=== PATIENT | male | born 1990 | race African-American/Black ===

== ENCOUNTER 2018-08-01 12:46 | Emergency (ER) | payer SELFPAY ==
--- NOTE | 2018-08-01 12:54 | PDOC ---
History of Present Illness - General Chief Complaint: Eye Problem Stated Complaint: IRRITATION LEFT EYE Time Seen by Provider: 08/01/18 12:49 Past History - Past Medical History Allergies/Adverse Reactions: Allergies Allergy/AdvReac Type Severity Reaction Status Date / Time No Known Allergies Allergy Unverified 08/01/18 12:48 Home Medications: Ambulatory Orders NK [No Known Home Medication] 08/01/18 *DC/Admit/Observation/Transfer - Discharge Dispostion Condition at time of disposition: Stable - Referrals - Patient Instructions - Post Discharge Activity
[2018-08-01 12:56] VITALS: BP 145/97; PULSE 79; TEMP 98.4; BMI 29.7
[2018-08-01] MEDS ORDERED: FLUORESCEIN NA 1 EA STRIP OS ONE (13:42)
[2018-08-01] MEDS ORDERED: TETRACAINE 0.5% HCL 0.6ML DROPPER.BOTTLE OS ONE (13:44)
[2018-08-01] MEDS ORDERED: FLUORESCEIN NA 1 EA STRIP ONE (13:46)
[2018-08-01] MEDS ORDERED: TETRACAINE 0.5% OPHTH SOLN 2 ML BOTTLE ONE (13:46)
[2018-08-01] MEDS ORDERED: CIPROFLOXACIN HCL 0.3% OPHTH 2.5ML BOTTLE ONE (13:51)
[2018-08-01] MEDS ORDERED: CIPROFLOXACIN 0.3% EYE DROPS 5 ML BOTTLE OS ONE (13:56)
--- NOTE | 2018-08-01 13:58 | PDOC ---
History of Present Illness - General History Source: Patient Exam Limitations: No Limitations - History of Present Illness Initial Comments: 08/01/18 13:53 Patient is a 28M contact user coming in today with left eye pain that started yesterday. Patient states that he feels like he has a foreign body in his left eye. Also states that he forgets to take out his lenses sometimes. Endorses clear discharge. Has not seen optho recently. Denies fevers, chills, nausea, vomiting. <Delbert Yun - Last Filed: 08/01/18 13:53> <Shelli Gibson - Last Filed: 08/01/18 16:58> - General Chief Complaint: Eye Problem Stated Complaint: IRRITATION LEFT EYE Time Seen by Provider: 08/01/18 12:49 Attending Attestation - Resident Resident Name: Delbert Yun - ED Attending Attestation I have performed the following: I have examined & evaluated the patient, The case was reviewed & discussed with the resident, I agree w/resident's findings & plan, Exceptions are as noted - HPI HPI: 28 y/o male complaining of both eyes irritation, mainly on the left for few days 08/01/18 16:35 - Physicial Exam PE: Hyperemic conjunctivae, negative fluorescein after tetracaine abrasion cornea - Medical Decision Making Patient developed corneal abrasion, , prescription given Instructed not to wear contacts until cleared by Ophtalmologist 08/01/18 16:51 <Shelli Gibson S - Last Filed: 08/01/18 16:58> Past History - Past Medical History COPD: No Other medical history: DENIES - Suicide/Smoking/Psychosocial Hx Smoking History: Never smoked Information on smoking cessation initiated: No Hx Alcohol Use: No Drug/Substance Use Hx: No <Delbert Yun - Last Filed: 08/01/18 13:53> <Shelli Gibson - Last Filed: 08/01/18 16:58> - Past Medical History Allergies/Adverse Reactions: Allergies Allergy/AdvReac Type Severity Reaction Status Date / Time No Known Allergies Allergy Unverified 08/01/18 12:48 Home Medications: Ambulatory Orders NK [No Known Home Medication] 08/01/18 Review of Systems - Review of Systems Comments:: 08/01/18 13:57 GENERAL/CONSTITUTIONAL: No fever or chills. No weakness. HEAD, EYES, EARS, NOSE AND THROAT: No change in vision. No sore throat. CARDIOVASCULAR: No chest pain or shortness of breath RESPIRATORY: No cough, wheezing, or hemoptysis. GASTROINTESTINAL: No nausea, vomiting, diarrhea or constipation. SKIN: No rash NEUROLOGIC: No headache, vertigo, loss of consciousness, or change in strength/ sensation. ALLERGIC/IMMUNOLOGIC: No hives or skin allergy. <Delbert Yun - Last Filed: 08/01/18 13:53> *Physical Exam - Vital Signs Last Vital Signs Temp Pulse Resp BP Pulse Ox 98.4 F 79 16 145/97 99 08/01/18 12:47 08/01/18 12:47 08/01/18 12:47 08/01/18 12:47 08/01/18 12:47 - Physical Exam Comments: 08/01/18 13:59 GENERAL: Awake, alert, and fully oriented, in no acute distress HEAD: No signs of trauma, normocephalic, atraumatic EYES: PERRLA, EOMI, sclera anicteric, conjunctiva clear. 20/40 bilaterally ENT: Auricles normal inspection, hearing grossly normal, nares patent, oropharynx clear without exudates. Moist mucosa NECK: Normal ROM, supple, no lymphadenopathy, JVD, or masses LUNGS: No distress, speaks full sentences, clear to auscultation bilaterally HEART: Regular rate and rhythm, normal S1 and S2, no murmurs, rubs or gallops, peripheral pulses normal and equal bilaterally. EXTREMITIES: Normal inspection, Normal range of motion, no edema. No clubbing or cyanosis. NEUROLOGICAL: Cranial nerves II through XII grossly intact. Normal speech, normal gait, no focal sensorimotor deficits SKIN: Warm, Dry, normal turgor, no rashes or lesions noted. <Delbert Yun - Last Filed: 08/01/18 13:53> - Vital Signs Last Vital Signs Temp Pulse Resp BP Pulse Ox 98.4 F 79 16 145/97 99 08/01/18 12:47 08/01/18 12:47 08/01/18 12:47 08/01/18 12:47 08/01/18 12:47 <Shelli Gibson - Last Filed: 08/01/18 16:58> ED Treatment Course - Medications Given in the ED: ED Medications Discontinued Medications Generic Name Dose Route Start Last Admin Trade Name Freq PRN Reason Stop Dose Admin Fluorescein Sodium 1 ea 08/01/18 13:42 08/01/18 13:48 Fluorets - OS 08/01/18 13:43 1 ea ONCE ONE Administration Tetracaine HCl 1 drop 08/01/18 13:44 08/01/18 13:48 Tetravisc 0.5% Eye Drops - OS 08/01/18 13:45 1 drop ONCE ONE Administration <Delbert Yun - Last Filed: 08/01/18 13:53> - Medications Given in the ED: ED Medications Discontinued Medications Generic Name Dose Route Start Last Admin Trade Name Freq PRN Reason Stop Dose Admin Ciprofloxacin 1 drop 08/01/18 13:56 08/01/18 13:57 Ciloxan 0.3% Eye Drops -- OS 08/01/18 13:57 1 drop ONCE ONE Administration Fluorescein Sodium 1 ea 08/01/18 13:42 08/01/18 13:48 Fluorets - OS 08/01/18 13:43 1 ea ONCE ONE Administration Tetracaine HCl 1 drop 08/01/18 13:44 08/01/18 13:48 Tetravisc 0.5% Eye Drops - OS 08/01/18 13:45 1 drop ONCE ONE Administration <Shelli Gibson - Last Filed: 08/01/18 16:58> Medical Decision Making - Medical Decision Making 08/01/18 13:59 Patient is 28M here today with eye pain. Vision at baseline. Vitals normal. Abrasion on fluorescein exam. Will treat with cipro, discharge with optho follow up. <Delbert Yun - Last Filed: 08/01/18 13:53> *DC/Admit/Observation/Transfer - Discharge Dispostion Decision to Admit order: No <Delbert Yun - Last Filed: 08/01/18 13:53> <Shelli Gibson - Last Filed: 08/01/18 16:58> Diagnosis at time of Disposition: Corneal abrasion Qualifiers: Encounter type: initial encounter Laterality: left Qualified Code(s): S05.02XA - Injury of conjunctiva and corneal abrasion without foreign body, left eye, initial encounter - Discharge Dispostion Disposition: HOME Condition at time of disposition: Good - Referrals Referrals: Henrik,Eric, MD [Staff Physician] - - Patient Instructions Printed Discharge Instructions: DI for Corneal Abrasion Additional Instructions: Please take the eye drops four times per day for the next three days. No contact lenses, See Eye MD Please return to the ED if you have any new, worsening or concerning symptoms, especially decreased vision, discharge and spreading redness.
[2018-08-02] MEDS ORDERED: CIPROFLOXACIN 0.3% EYE DROPS 5 ML BOTTLE OS ONE ×2 (13:52→13:56)
== END 2018-08-01 14:08 | disposition home or self-care (01) ==
LOC: FER 12:46
DX: S05.02XA Injury of conjunctiva and corneal abrasion without foreign body, left eye, initial encounter (principal); X58.XXXA Exposure to other specified factors, initial encounter; Y93.9 Activity, unspecified; Y92.9 Unspecified place or not applicable
CPT/HCPCS: 99281-25